=== PATIENT | male | born 2000 | race Caucasian/White ===

== ENCOUNTER 2020-08-23 19:17 | Emergency (ER) | payer MEDICAID, SELFPAY ==
[2020-08-23 19:59] VITALS: BP 121/86; PULSE 85; RESP 17; TEMP 36.5; O2SAT 97
--- NOTE | 2020-08-23 21:13 | ED.GENADULT ---
HPI - General Adult General Chief complaint: Unspecified Stated complaint: not acting normal, talking nonstop. Time Seen by Provider: 08/23/20 20:11 Source: patient and family Mode of arrival: ambulatory Limitations: no limitations History of Present Illness HPI narrative: Patient is a 19-year-old male who presents with mother mother noticed that he has been talking more than usual she has concerned that he is not acting appropriately patient recently moved back home with his mother has history of amphetamine abuse mother was asking if the patient would consent to blood testing and a urinalysis to rule out drug use or other cause patient on arrival is alert and oriented x3 and does not consent to any evaluation or blood work denies suicidal or homicidal ideation. Attempts were made to get the patient to evaluation but he refuses Related Data Home Medications Medication Instructions Recorded Confirmed No Home Medications 08/23/20 08/23/20 Allergies Allergy/AdvReac Type Severity Reaction Status Date / Time No Known Allergies Allergy Mild Verified 03/19/10 11:43 Review of Systems Review of Systems: All systems reviewed & are unremarkable except as noted in HPI and below PMFSH Social History Social History (Updated 08/23/20 @ 21:39 by Ty Savage PA-C) Smoking status: Never smoker Substance use type: methamphetamine Gender identity (if verbalized by the patient): Male Exam Narrative: Exam Narrative: GENERAL: Well-appearing, well-nourished, and in no acute distress. HEAD: Normocephalic, atraumatic. EYES: PERRLA and EOMI. ENT: Nares clear, no rhinorrhea or epistaxis. Mucous membranes moist. CHEST: Clear to auscultation. No respiratory distress. No wheezes rales or rhonchi HEART: Regular rate and rhythm. No murmur heard. Normal peripheral pulses. ABDOMEN: Soft, nontender, nondistended EXTREMITIES: Normal range of motion. No edema. SKIN: Warm, dry, no rash. NEURO: No focal deficits. Alert and oriented x3. Cranial nerves II through XII grossly intact PSYCH: Normal mood and affect. Course Course Emergency Course: Patient refused any testing will be discharged at this time does not want further evaluation patient will be given primary care Vital Signs Vital signs: Vital Signs Temperature 97.7 F 08/23/20 19:59 Pulse Rate 85 08/23/20 19:59 Respiratory Rate 17 08/23/20 19:59 Blood Pressure 121/86 08/23/20 19:59 Pulse Oximetry 97 08/23/20 19:59 Temperature 97.7 F 08/23/20 19:59 Pulse Rate 85 08/23/20 19:59 Respiratory Rate 17 08/23/20 19:59 Blood Pressure 121/86 08/23/20 19:59 Pulse Oximetry 97 08/23/20 19:59 Medical Decision Making MDM Narrative Medical decision making narrative: Patient alert and oriented x4 aware of case findings treatment plan diagnosis felt appropriate for discharge home given his unwillingness to partake in any evaluation will be provided with primary care follow-up and reasons to return Vital Signs Vital Signs: Vital Signs Temperature 97.7 F 08/23/20 19:59 Pulse Rate 85 08/23/20 19:59 Respiratory Rate 17 08/23/20 19:59 Blood Pressure 121/86 08/23/20 19:59 Pulse Oximetry 97 08/23/20 19:59 Temperature 97.7 F 08/23/20 19:59 Pulse Rate 85 08/23/20 19:59 Respiratory Rate 17 08/23/20 19:59 Blood Pressure 121/86 08/23/20 19:59 Pulse Oximetry 97 08/23/20 19:59 Discharge Plan Discharge Clinical Impression: Anxiety Patient Disposition: Home, Self-Care Condition: Stable Instructions: Antibiotic Form Additional Instructions: Follow up with your primary care doctor in 5-7 days for re-evaluation. Go to ER for worsening pain, vision changes, nausea/vomiting, fever/chills, weakness, chest pain, shortness of breath, numbness/tingling, slurred speech, difficulty walking, change in mental status etc. or any other concerns. Any thoughts of harming yourself or others return to emergency departme
== END 2020-08-23 22:00 | disposition home or self-care (01) ==
PROVIDERS: Emergency Provider Emergency Medicine
DX: F41.9 Anxiety disorder, unspecified (principal)
CPT/HCPCS: 99281

== ENCOUNTER 2020-08-26 19:33 | Emergency (ER) | payer MEDICAID, SELFPAY ==
[2020-08-26 19:41] VITALS: BP 129/79; PULSE 78; RESP 16; TEMP 37; O2SAT 100
--- NOTE | 2020-08-26 19:58 | PC.NURSE ---
Spoke with patients mother Magali. She stated that pt was banging on their door at approx 2200 yesterday night. He stated he was going to leave the house without taking any personal belongings (keys, phone, wallet). He told his parents that he wanted to kill himself but in the least painful way possible. He was trying to think of ways to accomplish this and mentioned jumping off a tower. Pts mother also states that he has been paranoid lately and talking out of his head . He says things like i can hear my girlfriend having sex for 21 hours and the police are bugging me. She states he moved back into her home about a week ago after living with friends in [place]. She states he has a 2 year history with drugs but didnt specify which ones. [facility] notified.
--- NOTE | 2020-08-26 20:07 | PC.NURSE ---
Attempting to have patient change into green scrubs and give urine sample. Pt states i dont feel comfortable doing that and no i dont think i'm going to.
--- NOTE | 2020-08-26 20:10 | ED.PSYCH ---
HPI - Psych General Chief Complaint: Psychiatric Symptoms Stated Complaint: SI Time Seen by Provider: 08/26/20 19:40 History of Present Illness HPI Narrative: Brought in for suicidal ideations and strange behavior. The patient denies doing or saying anything strange or suggesting suicidal thought. His parents were apparently concerned that he seemed to be hallucinating. He was just seen for suicidal ideations. He says that he thinks his parents are delusional and that he was just talking to them about video games. Related Data Home Medications Medication Instructions Recorded Confirmed No Home Medications 08/23/20 08/23/20 Allergies Allergy/AdvReac Type Severity Reaction Status Date / Time No Known Allergies Allergy Mild Verified 03/19/10 11:43 Review of Systems Review of Systems: All systems reviewed & are unremarkable except as noted in HPI and below Constitutional: Constitutional: Denies fever(s) Respiratory: Respiratory: Denies dyspnea Gastrointestinal: Gastrointestinal: Denies nausea Neurologic: Denies confusion, Denies dizziness and Denies weakness Psychiatric: Psychiatric: Denies anxiety, Denies depression, Denies homicidal ideation and Denies suicidal ideation [facility] Social History Social History Smoking status: Never smoker Substance use type: methamphetamine Gender identity (if verbalized by the patient): Male Exam Const: General: healthy appearing, no acute distress and alert Orientation/consciousness: patient oriented x3 HENMT: Head: normal to inspection Neck: Neck: normal visual inspection and no lymphadenopathy Chest: Chest palpation & inspection: no tenderness Resp: Effort & Inspection: normal respiratory effort Auscultation: clear to auscultation bilaterally, no rales, no rhonchi and no wheezes Cardio: Jugular venous distension: no JVD Rate: regular rate Rhythm: regular rhythm Heart sounds: no murmurs GI: Inspection: non-distended GI Palp: Yes Soft to palpation and No Tenderness to palpation present (GI) Skin: General skin exam: normal color Neuro: General: patient oriented x3 and moves all extremities Speech: normal speech Extrem: General: no edema Psych: Appearance: grossly normal and well kempt Mental Status: mental status grossly normal Attitude: cooperative Other: Odd affect Course Vital Signs Vital signs: Vital Signs Temperature 37.0 C 08/26/20 19:41 Pulse Rate 78 12/04/20 19:41 Respiratory Rate 16 08/26/20 19:41 Blood Pressure 129/79 08/26/20 19:41 Pulse Oximetry 100 08/26/20 19:41 Temperature 37.0 C 08/26/20 19:41 Pulse Rate 70 08/26/20 21:55 Respiratory Rate 16 08/26/20 21:55 Blood Pressure 118/77 08/26/20 21:55 Pulse Oximetry 99 08/26/20 21:55 MDM - Psych MDM Narrative Medical decision making narrative: Seen by crisis. They do not have criteria to hold him at this time. Medical Records Attestation: I reviewed the patient's medical records. Lab Data Attestation: I reviewed the patient's lab results. Result diagrams: 08/26/20 21:29 08/26/20 21:29 Labs: Lab Results 08/26/20 08/26/20 08/26/20 Range/Units 21:29 21:29 21:29 WBC 8.1 (4.5-10.0) K/mm3 RBC 5.58 (4.6-6.20) M/mm3 Hgb 16.6 (14.0-18.0) g/dL Hct 48.3 (42.0-52.0) % MCV 86.6 (80-100) fl MCH 29.7 (26-34) pg MCHC 34.4 (32-36) g/dl RDW 12.2 (11.5-14.5) % Plt Count 267 (150-375) k/mm3 MPV 9.8 (7.4-10.4) fl Immature Gran % (Auto) 0.1 (0-0.5) % Neut % (Auto) 56.3 (45.5-73.1) % Lymph % (Auto) 30.1 (18.3-44.2) % [place] % (Auto) 9.5 H (2.6-8.5) % Eos % (Auto) 2.8 (0-4.4) % Baso % (Auto) 1.2 (0.2-1.2) % Lymph # (Auto) 2.44 (0.9-3.2) K/mm3 [place] # (Auto) 0.8 H (0.1-0.6) K/mm3 Eos # (Auto) 0.2 (0-0.3) K/mm3 Baso # (Auto) 0.1 (0.0-0.1) K/mm3 Abs Immat Gran (auto) 0.01
--- NOTE | 2020-08-26 20:50 | PC.NURSE ---
pt refusing to get dressed into green scrubs, refusing to give urine sample, and refusing to let staff draw his labs at this time. pt smiling at staff stating i just don't feel like it right now. i don't really want to. what happens if i dont? pt educated on the importance of getting labs drawn.pt still refusing.
[2020-08-26 21:55] VITALS: BP 118/77; PULSE 70; RESP 16; O2SAT 99
[2020-08-26 21:58] LABS: Basophils Absolute Auto 0.1 K/mm3 (0.0-0.1); Basophils Percent Auto 1.2 % (0.2-1.2); Eosinophils Absolute Auto 0.2 K/mm3 (0-0.3); Eosinophils Percent Auto 2.8 % (0-4.4); Hematocrit 48.3 % (42.0-52.0); Hemoglobin 16.6 g/dL (14.0-18.0); Immature Granulocyte Absolute 0.01 K/mm3 (0.00-0.031); Immature Granulocyte Percent A 0.1 % (0-0.5); Lymphocytes Absolute Auto 2.44 K/mm3 (0.9-3.2); Lymphocytes Percent Auto 30.1 % (18.3-44.2); Mean Corpuscular HGB Conc 34.4 g/dl (32-36); Mean Corpuscular Hemoglobin 29.7 pg (26-34); Mean Corpuscular Volume 86.6 fl (80-100); Mean Platelet Volume 9.8 fl (7.4-10.4); Monocytes Absolute Auto 0.8 K/mm3 (0.1-0.6); Monocytes Percent Auto 9.5 % (2.6-8.5); Neutrophils Absolute Auto 4.6 K/mm3 (1.3-6.7); Neutrophils Percent Auto 56.3 % (45.5-73.1); Platelet Count Result 267 k/mm3 (150-375); Red Blood Count 5.58 M/mm3 (4.6-6.20); Red Cell Distribution Width 12.2 % (11.5-14.5); White Blood Count 8.1 K/mm3 (4.5-10.0)
[2020-08-26 22:03] LABS: Add Urine Microscopic? YES; Appearance Urine Clear (Clear); Bilirubin Urine Negative (Negative); Blood Urine Negative (Negative); Color Urine Yellow (Yellow); Glucose Urine UA Negative (Negative); Ketones Urine Negative (Negative); Leukocyte Esterase Ur Negative LEU/UL (Negative); Mucus Urine Heavy /lpf; Nitrate Urine Negative (Negative); Protein Urine 1+ mg/dL (Negative); RBC Urine 0-2 /hpf (0-2); Squamous Epithelial Cell Urine Rare /hpf (Few); Urobilinogen Urine Negative mg/dL (<2.0); WBC Urine 0-3 /hpf
[2020-08-26 22:06] LABS: Specific Grav Ur 1.032 (1.001-1.035)
[2020-08-26 22:13] LABS: Ethanol < 10 mg/dL (<10)
[2020-08-26 22:15] LABS: Alanine Aminotransferase 15 U/L (4-50); Alkaline Phosphatase 57 U/L (58-237); Anion Gap 11 mmol/L (8-16); Aspartate Amino Transferase 26 U/L (17-59); Bilirubin,Total 0.8 mg/dL (0.2-1.3); Blood Urea Nitrogen 16 mg/dL (8-21); Calcium 10.2 mg/dL (8.9-10.7); Carbon Dioxide 32 mmol/L (22-30); Chloride 97 mmol/L (98-107); Estimated CRCL calculation 124 ml/min; Estimated Glomerular Filt Rate > 60; Glucose 93 mg/dL (75-110); Potassium 4.5 mmol/L (3.4-5.0); Sodium 140 mmol/L (134-143)
[2020-08-26 22:53] LABS: Amphetamine Screen Urine Negative (Negative); Barbiturate Screen Urine Negative (Negative); Benzodiazepines Screen Urine Negative (Negative); Cannabinoid Screen Urine Negative (Negative); Cocaine Screen Urine Negative (Negative); Methadone Screen Urine Negative (Negative); Opiate Screen Urine Negative (Negative); Phencyclidine Screen Urine Negative (Negative)
--- NOTE | 2020-08-26 23:11 | PC.NURSE ---
this rn spoke to crisis, they stated they will get ahold of a [employer] worker and call me back.
--- NOTE | 2020-08-26 23:59 | PC.NURSE ---
crisis here to speak to pt
== END 2020-08-27 02:00 | disposition home or self-care (01) ==
PROVIDERS: Emergency Medicine Emergency Medical Services; Emergency Provider Emergency Medicine
DX: R46.89 Other symptoms and signs involving appearance and behavior (principal)
CPT/HCPCS: 36415; 51701; 80053; 80307; 81001; 84443; 85025; 99284

== ENCOUNTER 2025-09-13 02:13 | Emergency (ER) | payer BC, SELFPAY ==
[2025-09-13 02:20] VITALS: BP 119/80; PULSE 73; RESP 17; TEMP 36.5; O2SAT 100
--- NOTE | 2025-09-13 04:18 | ED_ITS ---
HPI - General Adult General Chief complaint: Dental/Oral Stated complaint: Facial swelling Time Seen by Provider: 09/13/25 04:01 History of Present Illness HPI narrative: Patient is a 24-year-old gentleman presents emergency department chief complaint of left-sided dental pain patient reports the pain radiates to his left ear reports there is some swelling in his gums patient reports that he does have a dentist but has not seen them yet for this the patient reports the pain is worse with chewing Related Data Allergies Allergy/AdvReac Type Severity Reaction Status Date / Time No Known Allergies Allergy Mild Verified 09/13/25 02:23 Review of Systems Review of Systems: A 10 system review of systems was completed on the patient and is negative except for what is stated in the HPI. Nursing and ancillary documentation was reviewed. [facility] Social History Social History Smoking status: Never smoker Substance use type: methamphetamine Gender identity (if verbalized by the patient): Male Exam Narrative: GENERAL: Well-appearing, well-nourished, and in no acute distress. HEAD: Normocephalic, atraumatic. EYES: PERRLA and EOMI. ENT: Nares clear, no rhinorrhea or epistaxis. Mucous membranes moist. Head there was no impacted wisdom changes on the maxillary molars on the left side NECK: Supple. CHEST: Clear to auscultation. No respiratory distress. HEART: Regular rate and rhythm. No murmur heard. Normal peripheral pulses. ABDOMEN: Soft, nontender, nondistended, normal active bowel sounds. EXTREMITIES: Normal range of motion. No edema. SKIN: Warm, dry, no rash. NEURO: No focal deficits. Alert and oriented x3. PSYCH: Normal mood and affect. Course Vital Signs Vital signs: Vital Signs Temperature 36.5 C 09/13/25 02:20 Pulse Rate 73 09/13/25 02:20 Respiratory Rate 17 09/13/25 02:20 Blood Pressure 119/80 09/13/25 02:20 Pulse Oximetry 100 09/13/25 02:20 Oxygen Delivery Room Air 09/13/25 02:20 Temperature 36.5 C 09/13/25 02:20 Pulse Rate 73 09/13/25 02:20 Respiratory Rate 17 09/13/25 02:20 Blood Pressure 119/80 09/13/25 02:20 Pulse Oximetry 100 09/13/25 02:20 Oxygen Delivery Room Air 09/13/25 02:20 MDM Differential Diagnosis Differential Diagnosis: Odontalgia, impacted Discharge Plan Discharge Clinical Impression: Dental abscess Patient Disposition: Home Condition: Stable Instructions: Antibiotic Form, Dental Abscess (ED), Toothache (ED) Patient Language: Malian Prescriptions: New amoxicillin-pot clavulanate 875-125 mg tablet 1 tablet PO Q12H 10 Days Qty: 20 0RF Follow-up/Referrals: Brandon Martinez MD [Physician, Family Practice] UNKNOWN,DOCTOR [Primary Care Provider] Time of Disposition: 04:21
--- OUTSIDE RECORDS SUMMARY | 2025-09-13 04:33 | XMS_ITS | Clinical Summary ---
Author Organization [facility] Address [facility] [place] [address] Care Team Providers Care Dictaphone Operator Name Role Phone None, Provider Primary Care Provider Unavaila ble Allergies No known active allergies Medications No known medications Encounters Date Type Department Care Team Description 09/01/2025 2:00 PM ACCORDION REPAIRER - 09/01/2025 11:59 PM ACCORDION REPAIRER Hospital Encounter [facility] [address] [place] [address] Sima Edouard NP Discharge Disposition: Home or Self Care (Routine Discharge) 09/01/2025 Orders Only [facility] [address] [place] [address] Sima Edouard NP 09/01/2025 Travel from Last 3 Months Social History Tobacco Use Types Packs/Day Years Used Date Smoking Tobacco: Never Smokeless Tobacco: Never Alcohol Use Standard Drinks/Week Comments Never 0 (1 standard drink = 0.6 oz pur e alcohol) AUDIT-C Answer Date Recorded Q1: How often do you have a drink containing alc ohol? Never 10/20/2020 Average Number of Drinks Not on file 021 Frequency of Binge Drinking Not on file 09/24 Sex and Gender Information Value Date Recorded Sex Assigned at Not on file Legal Sex Male 7:59 PM CDT Gender Identity Not on file Sexual Orientation Not on file Last Filed Vital Signs Vital Sign Reading Time Taken Comments Blood Pressure 125/74 11/29/2020 7:45 PM ACCORDION REPAIRER Pulse 90 11/29/2020 7:45 PM ACCORDION REPAIRER Temperature 36.9 C (98.5 F) 11/29/2020 7:45 PM ACCORDION REPAIRER Respiratory Rate 15 11/29/2020 7:45 PM ACCORDION REPAIRER Oxygen Saturation 98% 11/29/2020 7:45 PM ACCORDION REPAIRER Inhaled Oxygen Concentration - - Weight 68 kg (150 lb) 11/29/2020 7:45 PM ACCORDION REPAIRER Height 175.3 cm (5' 9) 11/29/2020 7:45 PM ACCORDION REPAIRER Body Mass Index 22.15 11/29/2020 7:45 PM ACCORDION REPAIRER Plan of Treatment Health Maintenance Due Date Last Done Comments Annual Physical 2003 Hepatitis C 2018 COVID-19 Vaccine ( season) 2025 Influenza Adult (#1) 2025 06/27/2012 DTaP, Tdap and Td Vaccines (8 - Td or Tdap) 11/30/2027 11/29/2017, 04/15/2012, 04/04/2006, Additional history exists Hepatitis B Vaccines Completed 10/30/2001, 03/27/2001, 01/23/2001 Pneumococcal Vaccine: Pediatrics (0 to 5 Years) and At-Risk Patients (6 to 49 Years) Completed 08/15/2004, 06/28/2004 Hepatitis A Vaccines Completed 01/26/2010, 04/18/20 07 HPV Vaccines Completed 10/11/2015, 05/24, 03/04/2015 Meningococcal Vaccine Completed 11/29/2017, 012 Meningococcal B Vaccine Aged Out No l onger eligible based on patient's age to complete this topic RSV Immunizations Under 20 Months Aged Out No longer eligible based on patient's age to complete this topic Procedures Procedure Name Priority Date/Time Associated Diagnosis Comments DRUG SCREEN RAPID Routine 09/01/2025 2:3 2 PM ACCORDION REPAIRER Encounter for long-term (current) drug use URINALYSIS Routine 09/01/2025 2:32 PM ACCORDION REPAIRER Encounter for long-term (current) drug use VITAMIN D, 25 OH Routine 09/01/2025 2:15 PM ACCORDION REPAIRER Encounter for long-term (current) drug use LIPID PANEL Routine 09/01/2025 2:15 PM ACCORDION REPAIRER Encounter for long-term (current) drug use HEMOGLOBIN, GLYCOSYLATED Routine 09/01/2025 2:15 PM ACCORDION REPAIRER Encounter for long-term (current) drug use THYROID STIM HORMONE TSH Routine 09/01/2025 2:15 PM ACCORDION REPAIRER Encounter for long-term (current) drug use COMPREHENSIVE METABOLIC PANEL Routine 09/01/2025 2:15 PM ACCORDION REPAIRER Encounter for long-term (current) drug use HC CBC AUTO W/AUTO DIFF Routine 09/01/2025 2:15 PM ACCORDION REPAIRER Encounter for long-term (current) drug use from Last 3 Months Results * (ABNORMAL) URINALYSIS (09/01/2025 2:32 PM ACCORDION REPAIRER) COLOR (U) YELLOW 09/01/2025 3:04 PM [facility] TRANSPARENCY CLEAR 09/01/2025 3:04 PM [facility] SPECIFIC GRAVITY (U) >1.030(H) 1.000 - 1.030 09/01/2025 3:04 PM [facility] U PH 6.0 5.0 - 9.0 09/01/2025 3:04 PM [facility] LEUKOCYTES (U) NEGATIVE NEGATIVE 09/01/2025 3:04 PM [facility] NITRITES NEGATIVE NEGATIVE 09/01/2025 3:04 PM [facility] PROTEIN RANDOM (U) NEGATIVE NEGATIVE 09/01/2025 3:04 PM [facility] GLUCOSE (U) NEGATIVE NEGATIVE 09/01/2025 3:04 PM [facility] KETONES MG/DL (U) NEGATIVE NEGATIVE 09/01/2025 3:04 PM [facility] BILIRUBIN (U) NEGATIVE NEGATIVE 09/01/2025 3:04 PM [facility] BLOOD (U) NEGATIVE NEGATIVE 09/01/2025 3:04 PM ACCORDION REPAIRER [facility] URINE URINE SPECIMEN OBTAINED BY CLEAN CATCH PROCEDURE / Unknown 09/01/2025 2:32 PM ACCORDION REPAIRER Sima Edouard DIRECTOR EHS URINE ORDERABLES Final Result [facility] [address] [place] [address], * DRUG SCREEN RAPID (09/01/2025 2:32 PM ACCORDION REPAIRER) Pathologist [facility] AMPHETAMINE (U) NONE DETECTED NONE DETECTED 09/01/2025 3:10 PM ACCORDION REPAIRER [facility] BARBITURATES SCREEN (U) NONE DETECTED NONE DETECTED 09/01/2025 3:10 PM ACCORDION REPAIRER [facility] BENZODIAZEPINES SCREEN (U) NONE DETECTED NONE DETECTED 09/01/2025 3:10 PM [facility] BUPRENORPHINE SCREEN (U) NONE DETECTED NONE DETECTED 09/01/2025 3:10 PM [facility] COCAINE METABOLITES (U) NONE DETECTED NONE DETECTED 09/01/2025 3:10 PM [facility] METHAMPHETAMINE (U) NONE DETECTED NONE DETECTED 09/01/2025 3:10 PM [facility] METHADONE (U) NONE DETECTED NONE DETECTED 09/01/2025 3:10 PM [facility] OPIATE SCREEN (U) NONE DETECTED NONE DETECTED 09/01/2025 3:10 PM ACCORDION REPAIRER [facility] OXYCODONE SCREEN (U) NONE DETECTED NONE DETECTED 09/01/2025 3:10 PM [facility] PHENCYCLIDINE PCP (U) NONE DETECTED NONE DETECTED 09/01/2025 3:10 PM ACCORDION REPAIRER [facility] CANNABINOIDS SCREEN (U) NONE DETECTED NONE DETECTED 09/01/2025 3:10 PM ACCORDION REPAIRER [facility] TRICYCLIC ANTIDEPRESSANT SCREEN (U) NONE DETECTED NONE DETECTED 09/01/2025 3:10 PM ACCORDION REPAIRER [facility] Comment: NOTE: RESULTS OF THIS DRUG SCREEN SHOULD BE USED FOR MEDICAL PURPOSES ONLY AND NOT FOR LEGAL OR EMPLOYEMENT PURPOSES. MEDICATIONS CONTAINING EPHEDRINE MAY CAUSE FALSE POSITIVE AMPHETAMINE. AMPHETAMINE- 500 NG/ML BARBITURATE- 200 NG/ML BENZODIAZEPINE- 150 NG/ML BUPRENORPHINE- 10 NG/ML COCAINE- 150 NG/ML METHAMPHETAMINES- 500 NG/ML METHADONE- 200 NG/ML OPIATE- 100 NG/ML OXYCODONE- 100 NG/ML PCP- 25 NG/ML THC- 50 NG/ML TCA- 300 NG/ML URINE URINE SPECIMEN OBTAINED BY CLEAN CATCH PROCEDURE / Unknown 09/01/2025 2:32 PM ACCORDION REPAIRER Sima Edouard DIRECTOR EHS URINE ORDERABLES Final Result Performing Organization Address [facility] [address] [facility] Co de Phone Number [facility] [address] [place] [address], [place] [phone] * (ABNORMAL) VITAMIN D, 25 OH (09/01/2025 2:15 PM ACCORDION REPAIRER) [facility] VITAMIN D 25 HYDROXY S/P/B 20(L) 30 - 100 NG/ML 09/01/2025 3:37 PM ACCORDION REPAIRER [facility] Comment: INTERPRETATION DEFICIENT <20 INSUFFICIENT 20-29 SUFFICIENT 30-100 BLOOD VENOUS BLOOD SPECIMEN / Unknown 09/01/2025 2:15 PM ACCORDION REPAIRER Sima Edouard DIRECTOR EHS LABORATORY Final Result Performing Organization Address [facility] [address]/[facility] Co de Phone Number [facility] [address] [place] [address], [place] [phone] * THYROID STIM HORMONE TSH (09/01/2025 2:15 PM ACCORDION REPAIRER) Pathologist [facility] TSH 2.465 0.358 - 3.74 uIU/ML 09/01/2025 3:20 PM [facility] Comment: HIGH DOSES OF BIOTIN MAY INTERFERE WITH THIS TEST RESULT. CORRELATION TO CLINICAL HISTORY AND PRESENTATION RECOMMENDED. BLOOD VENOUS BLOOD SPECIMEN / Unknown 09/01/2025 2:15 PM ACCORDION REPAIRER us Sima Cazaresl DIRECTOR EHS LABORATORY Final Result [facility] [address] [place] [address], * LIPID PANEL (09/01/2025 2:15 PM ACCORDION REPAIRER) CHOLESTEROL 141 <200.0 MG/DL 09/01/2025 3:20 PM [facility] TRIGLYCERIDES 45 <150 MG/DL 09/01/2025 3:20 PM [facility] HDL 61 >40.0 MG/DL 09/01/2025 3:20 PM [facility] LDL (CALCULATED) 71 <100 MG/DL 09/01/20 3:20 PM [facility] Comment:CALCULATED USING THE FRIEDEWALD EQUATION NON HDL CHOLESTEROL 80 <130 MG/DL 09/01 3:20 PM [facility] CHOL/HDL RATIO 2.3 0.0 - 4.5 09/01/2025 3:20 PM [facility] VLDL CALCULATION 9 5 - 55 MG/DL 09/01/2025 3:20 PM [facility] LIPID INTERPRETATION 09/01/2025 3:20 PM [facility] Comment: [facility] REPORT RECOMMENDATIONS: ADULT CHILD LOW RISK: CHOLESTEROL <200 <170 TRIGLYCERIDE <150 --- HDL >=60 --- LDL <100 <110 BORDERLINE: CHOLESTEROL 200-239 170-199 TRIGLYCERIDE 150-199 --- HDL 40-59 --- LDL 100-159 110-129 HIGH RISK: CHOLESTEROL >=240 >=200 TRIGLYCERIDE >=200 --- HDL <40 --- LDL >=160 >=130 BLOOD VENOUS BLOOD SPECIMEN / Unknown 09/01/2025 2:15 PM ACCORDION REPAIRER Sima Edouard NP LABORATORY Final Result Performing Organization Address [facility] [address]/[facility] de Phone Number [facility] [address] [place] [address], [place] [phone] * HEMOGLOBIN, GLYCOSYLATED (09/01/2025 2:15 PM ACCORDION REPAIRER) HGB A1C 5.4 <5.7 % 09/01/2025 3:17 PM ACCORDION REPAIRER [facility] Comment: INCREASED RISK OF DIABETES <5.7% NON-DIABETES 5.7-6.4% INCREASED RISK FOR FUTURE DIABETES > OR = 6.5 CONSISTENT WITH DIABETES STANDARDS OF MEDICAL CARE IN DIABETES-2010 DIABETES CARE, 33(SUPP 1): S1-S61,2010 ESTIMATED AVG GLUCOSE 108 mg/dL 09/01/2025 3:17 PM ACCORDION REPAIRER [facility] BLOOD VENOUS BLOOD SPECIMEN / Unknown 09/01/2025 2:15 PM ACCORDION REPAIRER Sima Edouard NP LABORATORY Final Result Performing Organization Address [facility] [address]/[facility] de Phone Number [facility] [address] [place] [address], [place] [phone] * (ABNORMAL) COMPREHENSIVE METABOLIC PANEL (09/01/2025 2:15 PM ACCORDION REPAIRER) GLUCOSE 101(H) 70 - 99 MG/DL 09/01/2025 3:20 PM ACCORDION REPAIRER [facility] BUN 19(H) 7 - 18 MG/DL 09/01/2025 3:20 PM ACCORDION REPAIRER [facility] CREATININE S/P/B 0.91 0.7 - 1.3 MG/DL 09/01/2025 3:20 PM [facility] SODIUM S/P/B 139 136 - 145 MMOL/L 09/01/2025 3:20 PM [facility] POTASSIUM S/P/B 4.0 3.5 - 5.1 MMOL/L 09/01/2025 3:20 PM [facility] CHLORIDE S/P/B 103 100 - 108 MMOL/L 09/01/2025 3:20 PM [facility] CO2 30.8 21 - 32 MMOL/L 09/01/2025 3:20 PM [facility] CALCIUM S/P/B 8.5 8.5 - 10.1 MG/DL 09/01/2025 3:20 PM [facility] BILIRUBIN TOTAL S/P/B 0.8 0.2 - 1.2 MG/DL 09/01/2025 3:20 PM [facility] TOTAL PROTEIN S/P/B 7.2 6.4 - 8.2 G/DL 09/01/2025 3:20 PM [facility] ALBUMIN S/P/B 3.9 3.4 - 5.0 G/DL 09/01/2025 3:20 PM [facility] AST 16 15 - 37 U/L 09/01/2025 3:20 PM [facility] ALT 19 16 - 60 U/L 09/01/2025 3:20 PM [facility] ALKALINE PHOSPHATASE S/P/B 51 50 - 136 U/L 09/01/2025 3:20 PM [facility] ANION GAP 5.2 5 - 15 MMOL/L 09/01/2025 3:20 PM [facility] BUN CREATININE RATIO 20.9 6 - 26 09/01/2025 3:20 PM [facility] A/G RATIO 1.2 1.0 - 2.0 RATIO 09/01/2025 3:20 PM ACCORDION REPAIRER [facility] GFR ESTIMATE >90 >90 ML/MIN/1.7 3 M2 09/01/2025 3:20 PM [facility] Comment: NOTE: eGFR is not calculated for patients <18 years of age. This is an estimated GFR calculation using the new CKD EPI creatinine equation without race and so does not require a correction factor for race. This estimated GFR should not be used for calculating drug doses. BLOOD VENOUS BLOOD SPECIMEN / Unknown 09/01/2025 2:15 PM ACCORDION REPAIRER us Sima Edouard NP LABORATORY Final Result [facility] [address] [place] [address], [place] [phone] * (ABNORMAL) CBC W/DIFF (09/01/2025 2:15 PM ACCORDION REPAIRER) WBC 5.32 4.4 - 11.0 x10'3/uL 09/01/2025 2:57 PM ACCORDION REPAIRER [facility] RBC 5.43 4.50 - 5.90 x10'6/uL 09/01/2025 2:57 PM [facility] HGB 15.5 14.0 - 17.5 G/DL 09/01/2025 2:57 PM [facility] HCT 46.5 41.5 - 50.4 % 09/01/2025 2:57 PM ACCORDION REPAIRER [facility] MCV 85.6 80.0 - 96.0 FL 09/01/2025 2:57 PM [facility] MCH 28.5 26.5 - 31.4 PG 09/01/2025 2:57 PM [facility] MCHC 33.3 31.9 - 34.8 G/DL 09/01/2025 2:57 PM [facility] RDW 12.1(L) 12.3 - 14.3 % 09/01/2025 2:57 PM [facility] PLT 238 151 - 353 x10'3/uL 09/01/2025 2:57 PM [facility] MPV 9.1(L) 9.7 - 11.9 FL 09/01/2025 2:57 PM [facility] RBC MORPHOLOGY NORMAL 09/01/2025 2:57 PM [facility] PLT MORPH. NORMAL 09/01/2025 2:57 PM [facility] WBC MORPHOLOGY NORMAL 09/01/2025 2:57 PM [facility] LYMPHOCYTES % 29.1 15.8 - 45.0 % 09/01/2025 2:57 PM [facility] NEUTROPHILS % 51.9 42.1 - 71.9 % 09/01/2025 2:57 PM [facility] MONOCYTES % 10.9 5.7 - 12.5 % 09/01/2025 2:57 PM [facility] EOSINOPHILS 6.6(H) 0.0 - 5.6 % 09/01/2025 2:57 PM [facility] BASOPHILS 1.3 0.0 - 1.3 % 09/01/2025 2:57 PM [facility] ABS. NEUTROPHILS 2.76 1.40 - 6.00 x10'3/uL 09/01/2025 2:57 PM [facility] IMMATURE GRANS % 0.2 0.0 - 0.5 % 09/01/2025 2:57 PM [facility] ABS. LYMPHOCYTES 1.55 0.80 - 4.70 x10'3/uL 09/01/2025 2:57 PM ACCORDION REPAIRER [facility] BLOOD VENOUS BLOOD SPECIMEN / Unknown 09/01/2025 2:15 PM ACCORDION REPAIRER us Sima Silke DIRECTOR EHS LABORATORY Final Result [facility] [address] [place] [address], [place] [phone] from Last 3 Months Insurance [employer] Care Teams Dictaphone Operator Relationship Specialty Start Date End Date None, Provider, PCP - General 10/20/20
--- OUTSIDE RECORDS SUMMARY | 2025-09-13 04:33 | XMS_ITS | Clinical Summary ---
Author Organization [facility] Address [address] [place] [id number] Care Team Providers Care Armature Inspector Name Role Phone Robert Bryant MD Primary Care Provider [phone] Allergies Active Allergy Reactions Criticality Noted Date Comments Poison Iraida Extract Rash Medium 12/14/2022 Medications benztropine (COGENTIN) 1 mg tablet nightly 1 Active haloperidoL (HALDOL) 10 mg tablet Take 1 tablet (10 mg total) by mouth nightly 2 Active sertraline (ZOLOFT) 100 mg tablet Take 1 tablet (100 mg total) by mouth nightly Active tadalafiL (CIALIS) 20 mg tablet Take 1 tablet (20 mg total) by mouth daily as needed for erectile dysfunction 30 tablet 11 4 Active Active Problems Problem Noted Date Diagnosed Date Drug-induced erectile dysfunction 11/08/2022 Encounter for annual health examination 05/29/20 22 Irritant contact dermatitis due to solvent 05/29 Allergic rhinitis due to allergen 01/19/2021 Assessment & Plan (01/19/2021 7:08 AM CDT): Overall Condition Chronic Condition: Uncontrolled. Treatment: New Medication: Flonase Follow up in 3 months Onychomycosis of toenail 01/19/2021 Assessment & Plan (01/19/2021 7:08 AM CDT): Overall Condition Chronic Condition: Uncontrolled and New Diagnosis. Treatment: New Medication: Trial of Lamisil x 8 weeks. Follow up in 3 months Deprivation amblyopia 02/22/2014 Immunizations Immunization Administration Dates Next Due DTaP 5 Pertussis 04/04/2006, 2,04/24/2001,03/27,01/23/2001 HPV, Quadrivalent 03/04/2015 HPV9 10/11/2015,06/07/2015 Hep A, Pediatric 01/26/2010,04/18/2007 Hep B / HiB 10/30/2001,03/27/2001,01/23/2001 IPV 04/04/2006, 2,03/27/2001,01/23 Influenza, Trivalent, Preser vative Free, Intramuscular 06/27/2012 Influenza, Unspecified 05/24/2023(Deferr ed: Patient decision),12/14/2022(Deferred: Patient Refused) MMR 04/04/2006,10/30/2001 Meningococcal Conjugate (Menveo) 04/15/2012 Meningococcal MCV4P (Menactra) 11/29/2017 Pneumococcal Conjugate PCV 13 08/15/2004, 004 Tdap 11/29/2017,04/15/2012 Varicella 05/12/2008,10/08/2002 Family History Medical History Relation Name Comments No Known Problems Brother No Known Problems Father No Known Problems Mother Relation Name Status Comments Brother Alive Father Alive Mother Alive Social History Tobacco Use Types Packs/Day Years Used Date Smoking Tobacco: Never Smokeless Tobacco: Never Tobacco Cessation:Counseling Given: Not Answered AUDIT-C Answer Date Recorded Q1: How often do you have a drink containing alcohol? Never 01/16/2024 Q2: How many drinks containi ng alcohol do you have on a typical day when you are drinking? Patient does not drink Q3: How often do you have si x or more drinks on one occasion? Never 01/16/2024 PHQ-2 Answer Date Recorded PHQ-2 Total Score (If total score is 3 or more points, staff should administer the PHQ-9) 0 01/16/2024 Personal Safety Answer Date Recorded Getting School Help Needed Not on file 10/12 Sex and Gender Information Value Date Recorded Sex Assigned at Not on file Legal Sex Male 4:47 AM FLUTE TEACHER Gender Identity Not on file Sexual Orientation Not on file Last Filed Vital Signs Vital Sign Reading Time Taken Comments Blood Pressure 122/79 01/16/2024 3:22 PM CDT Pulse 62 01/16/2024 3:22 PM CDT Temperature 36.3 C (97.3 F) 01/16/2024 3:22 PM CDT Respiratory Rate 18 01/16/2024 3:22 PM CDT Oxygen Saturation 98% 01/16/2024 3:22 PM CDT Inhaled Oxygen Concentration - - Weight 70 kg (154 lb 4.8 oz) 01/16/2024 3:22 PM CDT Height 175.3 cm (5' 9) 01/16/2024 3:22 PM CDT Body Mass Index 22.79 01/16/2024 3:22 PM CDT Plan of Treatment Health Maintenance Due Date Last Done Comments Hepatitis C Screening 2000 Depression Screening 01/15/2025 01/16/2024, 11/08/2022, 05/29/2022, Additional history exists Regular Well Visit/Exam 18-64 01/15/2025, 05/29/2022, 01/18/2021 Influenza Vaccine (#1) 2025 06/27/2012 DTaP/Tdap/Td Vaccine (8 - Td or Tdap) 11/30/2027 11/29/2017, 04/15/2012, 04/04/2006, Additional history exists Hepatitis B Screening Completed 10/30/2001 , 03/27/2001, 01/23/2001 Pneumococcal vaccine <65 Completed 08/15/2004, 10/0 02/2004 Varicella Vaccines Completed 05/12/2008, 10/08/2002 HPV Vaccines Completed 10/11/2015, 05/24, 03/04/2015 Insurance [employer] BLUE ACCESS OOS BLUE ACCESS OOS Care Teams Armature Inspector Relationship Specialty Start Date End Date Robert Bryant MD PCP - General Family Medicine 01/18/21
--- OUTSIDE RECORDS SUMMARY | 2025-09-13 04:33 | XMS_ITS | Clinical Summary ---
Author Organization [facility] Address [address] [place] [id number] Care Team Providers Care Target Worker Name Role Phone Unavailable Primary Care Provider Unavailabl e Allergies No known active allergies Social History Tobacco Use Types Packs/Day Years Used Date Smoking Tobacco: Never Assessed Sex and Gender Information Value Date Recorded Sex Assigned at Not on file Legal Sex Male 4:15 PM GEOGRAPHIC INFORMATION SYSTEM ANALYST Gender Identity Not on file Sexual Orientation Not on file Last Filed Vital Signs Vital Sign Reading Time Taken Comments Blood Pressure 130/65 09/07/2020 5:30 PM EST Pulse 78 09/07/2020 5:30 PM EST Temperature 36.4 C (97.6 F) 09/07/2020 5:30 PM EST Respiratory Rate 16 09/07/2020 5:30 PM EST Oxygen Saturation 100% 09/07/2020 5:30 PM EST Inhaled Oxygen Concentration - - Weight - - Height 175.3 cm (5' 9) 09/07/2020 5:30 PM EST Body Mass Index - - Plan of Treatment Health Maintenance Due Date Last Done Comments HIV Screening 2000 Hepatitis C Screening ages 1 8 to 79 once 2000 MMR VACCINES (1 of 1 - Stand nicole series) 2001 YEARLY WELLNESS EXAM 2003 DTaP/Tdap/Td Vaccines (1 - Tdap) 2007 DEPRESSION SCREENING 2012 Varicella Vaccine (1 of 2 - 13+ 2-dose series) 2013 HPV VACCINES (1 - Male 3-dos e series) 2015 ADULT TETANUS 2019 HEPATITIS B VACCINES (1 of 3 - 19+ 3-dose series) 2019 Influenza Vaccine 04/23/2025 COVID-19 Immunization (1 - 2 024-25 season) 2025 Zoster Vaccine (Recombinant Vaccine) (1 of 2) 2050 HEPATITIS A VACCINES Aged Out No long er eligible based on patient's age to complete this topic HIB VACCINES Aged Out No longer eligi ble based on patient's age to complete this topic IPV VACCINES Aged Out No longer eligi ble based on patient's age to complete this topic MENINGOCOCCAL VACCINE Aged Out No isael luke eligible based on patient's age to complete this topic Meningococcal B Vaccine Aged Out No l onger eligible based on patient's age to complete this topic Pneumococcal Vaccine: Peds t o 50 & At-Risk Patients Aged Out No longer eligible b ased on patient's age to complete this topic ROTAVIRUS VACCINES Aged Out No longer eligible based on patient's age to complete this topic Insurance [address] MEDICAID
== END 2025-09-13 04:38 | disposition home or self-care (01) ==
LOC: ANHED 04:30
PROVIDERS: Emergency Provider Emergency Medicine
DX: K04.7 Periapical abscess without sinus (principal)
CPT/HCPCS: 99283; A9270